=== PATIENT | female | born 1970 ===

== ENCOUNTER 2018-04-25 11:56 | Emergency (ER) | payer OTHER ==
[2018-04-25 12:16] VITALS: BP 110/73; PULSE 76; RESP 16; TEMP 98.4; O2SAT 100; BMI 25.1
--- NOTE | 2018-04-25 12:47 | C.PDOC ---
History Of Present Illness 47 year old female presents to the ED with daughter for evaluation of an itchy and scaly rash between patient's right 4th and 5th toes. Patient states the area has become more red and swollen over the past two days, and her pain is worse with walking. Patient denies fever, chills, trauma to the area, extremity numbness/weakness. Time Seen by Provider: 04/25/18 12:27 Chief Complaint (Nursing): Lower Extremity Problem/Injury History Per: Patient History/Exam Limitations: no limitations Onset/Duration Of Symptoms: Days Current Symptoms Are (Timing): Worse Additional History Per: Patient - Ankle/Foot Description Of Injury: denies: Fell, Struck With Object, Struck Against Object, Twisted Past Medical History Reviewed: Historical Data, Nursing Documentation, Vital Signs Vital Signs: Last Vital Signs Temp 98.4 F 04/25/18 12:06 Pulse 76 04/25/18 12:06 Resp 16 04/25/18 12:06 BP 110/73 04/25/18 12:06 Pulse Ox 100 04/25/18 12:06 - Medical History PMH: No Chronic Diseases Surgical History: No Surg Hx Family History: States: Unknown Family Hx - Social History Hx Alcohol Use: No Hx Substance Use: No - Immunization History Hx Tetanus Toxoid Vaccination: No Hx Influenza Vaccination: No Hx Pneumococcal Vaccination: No Review Of Systems Constitutional: Negative for: Fever, Chills Skin: Positive for: Rash (right 4th and 5th toes ) Physical Exam - Physical Exam Appears: Non-toxic, No Acute Distress Skin: Warm, Dry, Other (white-colored, scaling, crusting rash between right 4th and 5th toes with surrounding erythema ) Head: Atraumatic, Normacephalic Eye(s): bilateral: Normal Inspection Oral Mucosa: Moist Neck: Normal ROM Extremity: Normal ROM, Tenderness (right 4th and 5th toes ), Capillary Refill (less than 2 seconds ) Pulses: Left Dorsalis Pedis: Normal, Right Dorsalis Pedis: Normal Neurological/Psych: Oriented x3, Normal Speech, Normal Cognition, Normal Motor, Normal Sensation Gait: Steady ED Course And Treatment O2 Sat by Pulse Oximetry: 100 (on RA ) Pulse Ox Interpretation: Normal Medical Decision Making Medical Decision Making: Progress: Keflex PO given. Disposition - Disposition Referrals: Mare Nelson DPM [Staff Provider] - Disposition: HOME/ ROUTINE Disposition Time: 13:00 Condition: STABLE Additional Instructions: KEEP THE FOOT DRY AND APPLY CREAM FOR 3 WEEKS Follow up with the medical doctor within 1-2 days. Return if worsened. Prescriptions: Butenafine HCl [Lotrimin Ultra] 1 gm TP BID #3 cream..g. 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 - Scribe Statement The provider has reviewed the documentation as recorded by the Scribe (Tiara Culp) All medical record entries made by the Scribe were at my direction and personally dictated by me. I have reviewed the chart and agree that the record accurately reflects my personal performance of the history, physical exam, medical decision making, and the department course for this patient. I have also personally directed, reviewed, and agree with the discharge instructions and disposition.
== END 2018-04-25 13:20 | disposition home or self-care (01) ==
LOC: C.ER 11:56
DX: B35.3 Tinea pedis (principal); L03.031 Cellulitis of right toe